=== PATIENT | female | born 1935 | race Caucasian/White ===

== ENCOUNTER 2020-12-29 10:30 | Outpatient (CLI) | payer MEDICARE, MEDICAID, SELFPAY ==
--- NOTE | ~2020-12-29 | CT_ITS ---
EXAMINATION: CT pelvis wo con DATE: 12/29/2020 10:56 INDICATION: Lower abdomen pain TECHNIQUE: Computed tomography (CT) of the pelvis was performed without intravenous contrast. The dos e-length product was 427.71 mGy-cm. Automated exposure control and iterative reconstruction technique were employed. COMPARISON: CT dated 10/13/2016 FINDINGS: There is a new cecal mass measuring 4.1 x 4 cm, suspicious for adenocarcinoma. No obstructi on. Moderate colonic fecal loading. The kidneys are partially visualized. There is a 1.8 cm exophytic right renal cyst with layering milk of calcium. No significant lymphadenopathy. There is atherosclerosis. No free air or free fluid. The re are degenerative changes of the lower lumbar spine partially visualized. There is partial ankylosi s of the sacroiliac joints. No acute osseous abnormality. There is moderate osteoarthritis of the hip s, right greater than left. IMPRESSION: 1. New soft tissue mass of the cecum measuring 4.1 x 4.0 cm greatest axial dimension, suspicious for adenocarcinoma. Recommend GI consultation. Reviewed, dictated and finalized at location A. [employer] IMPRESSION: 1. New soft tissue mass of the cecum measuring 4.1 x 4.0 cm greatest axial dime nsion, suspicious for adenocarcinoma. Recommend GI consultation.
== END 2020-12-29 10:31 | disposition home or self-care (01) ==
PROVIDERS: Family Provider Internal Medicine; PCP Family Medicine; Visit Provider Nurse Practitioner
DX: R10.9 Unspecified abdominal pain (principal); K63.9 Disease of intestine, unspecified
CPT/HCPCS: 72192

== ENCOUNTER 2021-04-29 11:58 | Outpatient (CLI) | payer MEDICARE, SELFPAY ==
--- NOTE | ~2021-04-29 | MR_ITS ---
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 Sequences included axial, sagittal and coronal T1- weighted FSE and T2-weighted FS FSE, axial T1-weighted FS FSE and postcontrast axial, sagittal and co mark T1-weighted FS FSE . COMPARISON: None. FINDINGS: Medial ankle ligaments: Deep and superficial deltoid ligaments as well as the spring ligament are normal. Lateral ankle ligaments: The anterior and posterior inferior tibiofibular ligaments are normal. The anterior talofibular, calc aneofibular and posterior talofibular ligaments are normal. Tendons: Achilles tendon is normal. The peroneus longus and brevis tendons are normal. The tibialis anterior a nd extensor hallucis longus and extensor digitorum longus tendons are normal. The tibialis posterior, flexor digitorum longus and flexor hallucis longus tendons are normal. Plantar fascia: Plantar aponeurosis is normal. Bones/other: Bone alignment is normal. No fracture. There is a bandage overlying a small deep skin ulceration over lying the anterolateral margin of the lateral malleolus. The underlying linear low signal intensity c ortex along the periphery of the lateral malleolus appears to remain intact and there is no underlyin g abnormal marrow signal to suggest osteomyelitis. Mild tibiotalar osteoarthritis with partial thickn ess cartilage loss and foci of underlying subarticular edema. Additional mild osteoarthritis at the f irst metatarsophalangeal and several tarsal metatarsal joints. No abscess or other abnormal fluid col lections. Physiologic amount fluid in the joint spaces. Subcutaneous edema about the distal calf exte nding around the ankle and over the dorsum of the foot. IMPRESSION: 1. No evident osteomyelitis underlying a small deep skin ulceration overlying the lateral malleolus. 2. 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 Reviewed, dictated and finalized at location A. IMPRESSION: 1. No evident osteomyelitis underlying a small deep skin ulceration overlying t he lateral malleolus. 2. 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
[2021-04-29 12:59] LABS: Estimated Glomerular Filt Rate > 60
== END 2021-04-29 11:59 ==
PROVIDERS: Visit Provider Nurse Practitioner
DX: L97.319 Non-pressure chronic ulcer of right ankle with unspecified severity (principal); M19.071 Primary osteoarthritis, right ankle and foot
CPT/HCPCS: 73723; A9577

== ENCOUNTER 2022-03-29 09:48 | Outpatient (CLI) | payer MEDICARE, MEDICAID, SELFPAY ==
--- NOTE | ~2022-03-29 | CT_ITS ---
EXAMINATION: CT brain wo con DATE: 03/29/2022 10:13 INDICATION: Cerebral infarct. TECHNIQUE: Computed tomography (CT) of the head was performed without intravenous contrast. The mA wa s adjusted according to patient size. Iterative reconstruction technique was employed. The dose-lengt h product was 529.67 mGy-cm. COMPARISON: Head CT 09/28/2013 FINDINGS: There is no intracranial hemorrhage, acute infarction, or abnormal intracranial mass lesion . There are scattered areas of low attenuation in the cerebral white matter. The ventricles are jaz l in size. There are likely changes of ocular lens replacement surgeries. The paranasal sinuses are c lear. The mastoid air cells are normal. IMPRESSION: 1. Extensive nonspecific cerebral white matter disease, which likely represents chronic small vessel ischemic disease, worsened from 09/28/2013. Reviewed, dictated and finalized at location B.
== END 2022-03-29 09:49 | disposition home or self-care (01) ==
PROVIDERS: PCP Family Medicine; Visit Provider Nurse Practitioner Adult Health
DX: Z86.73 Personal history of transient ischemic attack (TIA), and cerebral infarction without residual deficits (principal)
CPT/HCPCS: 70450

== ENCOUNTER → 2022-04-28 11:33 | Outpatient (CLI) | payer MEDICARE, SELFPAY ==
--- NOTE | ~2022-04-28 | XR_ITS ---
XR hip LT 2V w AP pelvis DATE: 04/28/2022 12:06 INDICATION: Left hip pain after fall TECHNIQUE: AP and lateral views of left hip. AP pelvis COMPARISON: None FINDINGS: There is diffuse osteopenia. There is levoscoliosis of the lumbar spine. Posterior spine fusion at L4 level. No pelvic fracture or bone destruction. The pubic symphysis and sacroiliac joints are intact. There is mild left hip osteoarthritis. 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 No fracture or dislo cation, avascular necrosis or bone destruction of left hip is detected. 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
== END ==
PROVIDERS: PCP Family Medicine; Visit Provider Family Medicine
DX: M16.12 Unilateral primary osteoarthritis, left hip (principal); Z98.1 Arthrodesis status; M41.9 Scoliosis, unspecified; M11.252 Other chondrocalcinosis, left hip
CPT/HCPCS: 73502